=== PATIENT | female | born 1980 | race Caucasian/White ===

== ENCOUNTER 2019-05-14 06:53 | Outpatient (CLI) | payer OTHER ==
--- NOTE | 2019-05-14 07:54 | ULT ---
PELVIC SONOGRAM TRANSABDOMINAL AND TRANSVAGINAL IMAGING WITH DUPLEX EVALUATION: HISTORY: Heavy menstrual bleeding. FINDINGS: Urinary bladder is unremarkable. Uterus has a heterogeneous echotexture and is 9.1 cm. Endometrium is 0.6 cm. No focal masses. No free fluid in the pelvis. Right ovary is 3.6 cm with a 0.7 cm follicle. Left ovary is 2.5 cm. Good color and spectral Doppler flow within each ovary. IMPRESSION: Normal exam. POS: [facility]
== END 2019-05-14 06:54 | disposition home or self-care (01) ==
LOC: BICULT 06:53
PROVIDERS: ATTEND Internal Medicine
DX: N92.0 Excessive and frequent menstruation with regular cycle (principal)
CPT/HCPCS: 76856